=== PATIENT | female | born 1985 | race Caucasian/White ===

== ENCOUNTER → 2016-10-10 | Outpatient (REF) | payer BC, OTHER | LOC: M LAB REF 16:47 | PROVIDERS: ATTEND Physician Assistant | DX: J02.9 Acute pharyngitis, unspecified (principal) ==

== ENCOUNTER → 2016-12-28 | Outpatient (REF) | payer MEDICAID, OTHER ==
[2016-12-28 17:57] LABS: MEAN CORPUSCULAR HEMOGLOBIN 29.5 pg (27.0-33.0); MEAN CORPUSCULAR VOLUME 86.8 fl (80.0-96.0); RED CELL DISTRIBUTION WIDTH 12.2 % (11.5-14.5); WHITE BLOOD COUNT 7.6 K/mm3 (4.0-10.0)
[2016-12-28 18:04] LABS: ALBUMIN 3.9 GM/DL (3.2-5.2); ALBUMIN/GLOBULIN RATIO 1.05 (1.00-1.93); ALKALINE PHOSPHATASE 52 U/L (45-117); ALT/SGPT 26 U/L (12-78); ANION GAP 8 MEQ/L (8-16); AST/SGOT 18 U/L (15-37); BILIRUBIN,TOTAL 0.2 MG/DL (0.2-1.0); BLOOD UREA NITROGEN 10 MG/DL (7-18); CALCIUM LEVEL 8.9 MG/DL (8.5-10.1); CARBON DIOXIDE LEVEL 24 MEQ/L (21-32); CHLORIDE LEVEL 109 MEQ/L (98-107); CREATININE FOR GFR 0.67 MG/DL (0.55-1.02); FREE T4 0.93 NG/DL (0.76-1.46); GLOMERULAR FILTRATION RATE > 60.0 (>60); GLUCOSE, FASTING 90 MG/DL (70-105); POTASSIUM SERUM 4.2 MEQ/L (3.5-5.1); SODIUM LEVEL 141 MEQ/L (136-145); TOTAL PROTEIN 7.6 GM/DL (6.4-8.2)
== END ==
LOC: M SFHCPLAZ 14:24
PROVIDERS: ATTEND Nurse Practitioner Family
DX: F32.89 Other specified depressive episodes (principal)

== ENCOUNTER → 2017-02-14 | Outpatient (REF) | payer OTHER | LOC: M LAB REF 17:03 | PROVIDERS: ATTEND Obstetrics & Gynecology | DX: Z11.3 Encounter for screening for infections with a predominantly sexual mode of transmission (principal); Z12.4 Encounter for screening for malignant neoplasm of cervix ==

== ENCOUNTER → 2017-03-06 | Outpatient (CLI) | payer OTHER | LOC: M WUC 13:35 | PROVIDERS: ATTEND Obstetrics & Gynecology | DX: Z11.3 Encounter for screening for infections with a predominantly sexual mode of transmission (principal) ==

== ENCOUNTER → 2017-04-06 | Outpatient (REF) | payer BC | LOC: M LAB REF 09:00 | PROVIDERS: ATTEND Obstetrics & Gynecology | DX: R87.612 Low grade squamous intraepithelial lesion on cytologic smear of cervix (LGSIL) (principal) ==

== ENCOUNTER 2017-10-14 21:37 | Emergency (ER) | payer BC ==
[2017-10-14 23:20] LABS: KETONE, URINE AUTO RFX NEGATIVE (NEGATIVE); LEUKOCYTE ESTERASE UR AUTO RFX NEGATIVE (NEGATIVE); NITRITE, URINE AUTO RFX NEGATIVE (NEGATIVE); RBC, URINE AUTO RFX 1 /HPF (0-3); SPECIFIC GRAVITY UR AUTO RFX 1.006 (1.002-1.035); SQUAM EPITHELIAL CELL UR AURFX 1 /HPF (0-6); WBC, URINE AUTO RFX 0 /HPF (0-3)
[2017-10-15 00:56] LABS: CHLAMYDIA DNA AMPLIFICATION NEGATIVE (NEGATIVE); GC DNA AMPLIFICATION NEGATIVE (NEGATIVE)
== END 2017-10-15 00:56 | disposition home or self-care (01) ==
LOC: M ED 10-15 00:56
DX: N83.201 Unspecified ovarian cyst, right side (principal); F32.9 Major depressive disorder, single episode, unspecified; R18.8 Other ascites; Z79.899 Other long term (current) drug therapy
CPT/HCPCS: 76856

== ENCOUNTER → 2017-12-06 | Outpatient (CLI) | payer BC | LOC: M RAD 09:54 | DX: D39.11 Neoplasm of uncertain behavior of right ovary (principal) ==

== ENCOUNTER → 2018-02-26 | Outpatient (REF) | payer BC | LOC: M LAB REF 17:40 | DX: N87.1 Moderate cervical dysplasia (principal) | CPT/HCPCS: G0123 ==

== ENCOUNTER → 2018-08-06 | Outpatient (REF) | payer BC | LOC: M LAB REF 13:54 | DX: Z12.4 Encounter for screening for malignant neoplasm of cervix (principal) | CPT/HCPCS: G0123 ==

== ENCOUNTER → 2018-12-02 | Outpatient (REF) | payer BC ==
[~2018-12-02] MED LIST: WELLTAB40 PO; microgestin PO
[2018-12-06 14:22] LABS: HPV HYBRID CAPTURE II Negative (Negative)
== END ==
LOC: M LAB REF 13:17
PROVIDERS: ATTEND Obstetrics & Gynecology
DX: Z87.410 Personal history of cervical dysplasia (principal); R87.615 Unsatisfactory cytologic smear of cervix
CPT/HCPCS: 87624; G0123

== ENCOUNTER → 2018-12-03 | Outpatient (REF) | payer BC | LOC: M LAB REF 13:20 | PROVIDERS: ATTEND Obstetrics & Gynecology | DX: Z87.410 Personal history of cervical dysplasia (principal) ==

== ENCOUNTER → 2019-02-11 | Outpatient (CLI) | payer BC, MEDICAID, SELFPAY ==
[2019-02-11 16:43] LABS: BASO % 0.3 % (0.0-1.0); EOS # 0.1 10^3/uL (0.0-0.50); EOS % 1.3 % (0.0-3.0); HEMATOCRIT 36.6 % (36.0-47.0); HEMOGLOBIN 12.3 g/dl (12.0-15.5); LYMPH # 2.5 10^3/uL (1.5-4.5); LYMPH % 26.5 % (24.0-44.0); MEAN CORPUSCULAR HEMOGLOBIN 29.6 pg (27.0-33.0); MEAN CORPUSCULAR HGB CONC 33.6 g/dl (32.0-36.5); MEAN CORPUSCULAR VOLUME 88.2 fl (80.0-96.0); MONO # 0.7 10^3/uL (0.0-0.8); NEUTROPHILS # 6.1 10^3/uL (1.8-7.7); NEUTROPHILS % 64.6 % (36.0-66.0); PLATELET COUNT, AUTOMATED 184 10^3/uL (150-450); RED BLOOD COUNT 4.15 10^6/uL (4.00-5.40); WHITE BLOOD COUNT 9.4 10^3/uL (4.0-10.0)
[2019-02-11 18:56] LABS: CHLAMYDIA DNA AMPLIFICATION NEGATIVE (NEGATIVE); GC DNA AMPLIFICATION NEGATIVE (NEGATIVE)
[2019-02-12 10:33] LABS: HIV 1&2 SCREEN CENTAUR NEGATIVE (NEGATIVE); RUBELLA IgG QUALITATIVE IMMUNE (IMMUNE)
== END ==
LOC: M LAB 15:36 → M WUC 15:36
PROVIDERS: ATTEND Advanced Practice Midwife
DX: Z34.81 Encounter for supervision of other normal pregnancy, first trimester (principal); Z3A.00 Weeks of gestation of pregnancy not specified

== ENCOUNTER 2019-03-07 14:23 | Day surgery (SDC) | payer MEDICAID ==
[~2019-03-07] VITALS: Ht 167.6 cm; Wt 74.8 kg
[~2019-03-07 14:23] MED LIST changes: +DOXYCYCLINE HYCLATE 100 MG in D5W MINI-BAG PLUS 100 ML IV ONE
[2019-03-07] MEDS ORDERED: DOXYCYCLINE HYCLATE 100 MG/10 ML VIAL As Ordered ONE (14:34)
[2019-03-07 15:02] LABS: HEMATOCRIT 35.7 % (36.0-47.0); HEMOGLOBIN 12.3 g/dl (12.0-15.5); MEAN CORPUSCULAR HEMOGLOBIN 29.6 pg (27.0-33.0); MEAN CORPUSCULAR HGB CONC 34.5 g/dl (32.0-36.5); PLATELET COUNT, AUTOMATED 166 10^3/uL (150-450); RED BLOOD COUNT 4.15 10^6/uL (4.00-5.40); WHITE BLOOD COUNT 7.7 10^3/uL (4.0-10.0)
[2019-03-07] MEDS ORDERED: SILVER NITRATE APPLICATOR As Ordered ONE (16:19)
[2019-03-07] MEDS ORDERED: BUPIVACAINE HCL 0.25% 30 ML VIAL As Ordered ONE (16:37)
[2019-03-07] MEDS ORDERED: PROPOFOL 200 MG/20 ML VIAL As Ordered ONE ×2 (16:48→16:49)
[2019-03-07] MEDS ORDERED: MIDAZOLAM INJ 2 MG/2 ML VIAL (J2250) As Ordered ONE (16:48)
[2019-03-07] MEDS ORDERED: fentaNYL 100 MCG/2 ML INJECTION (J3010) As Ordered ONE (16:48)
[2019-03-07] MEDS ORDERED: miSOPROStol 200 MCG TAB (S0191) As Ordered ONE (16:55)
[2019-03-07] MEDS ORDERED: METHYLERGONOVINE MALEATE 0.2 MG/ML VIAL (J2210) As Ordered ONE (16:55)
[2019-03-07] MEDS ORDERED: ZOFR4TAB16 PO (17:30)
[2019-03-07] MEDS ORDERED: IBUP1TAB7 PO (17:30)
[2019-03-07 18:35] VITALS: BP 123/82
--- NOTE | 2019-03-08 15:24 | RO ---
DATE OF PROCEDURE: 03/07/2019 PREOPERATIVE DIAGNOSIS: First trimester miscarriage/spontaneous of mono-di twins at 9 weeks. POSTOPERATIVE DIAGNOSIS: First trimester miscarriage/spontaneous of mono-di twins at 9 weeks PROCEDURE PERFORMED: Suction dilation and curettage (D and C). FINDINGS The uterus sounded to 8-9 cm. Tissue obtained was grossly consistent with products of conception. SURGEON: Dr. Lokesh Orozco ACADEMIC COUNSELOR: None. ANESTHESIA TYPE Local anesthesia with paracervical block, 13 mL of 0.25% Marcaine. Minimal anesthesia content via IV. SPECIMENS SENT TO PATHOLOGY: Products of conception. ESTIMATED BLOOD LOSS: 100 mL . FLUIDS REPLACED: 600 mL lactated Ringer's. DRAINS: In-and-out catheter 50 mL COMPLICATIONS: None. PREOPERATIVE ANTIBIOTICS: Doxycycline 100 mg IV times one. DESCRIPTION OF PROCEDURE: The patient was counseled and consented on the risks, benefits, indications and alternatives of the procedure. Informed consent was obtained. She was taken to the operating room with an IV running and placed on the operating table in the dorsal supine position. Anesthesia was administered and found to be adequate. She was placed in the high lithotomy position. She was prepared and draped in a normal sterile fashion. A time-out was performed per protocol. The bladder was drained with an in-and-out sterile catheter. A sterile speculum was placed with good visualization of the cervix. The anterior lip of the cervix was grasped with a single-tooth tenaculum, and downward traction was applied. A paracervical block was performed. After the paracervical block, the cervix was sequentially dilated with Oscar dilators up to #20. Size 10 curved Vacurette was placed transcervically into the intrauterine cavity and suction was applied. After several passes of the Vacurette in the intrauterine cavity and return of tissue and blood, there became minimal blood and tissue return. The Vacurette was removed, a sharp curette was placed transcervically into the intrauterine cavity. A sharp curettage was performed throughout the cavity until a gritty texture was noted throughout. Minimal bleeding from the intrauterine cavity was noted. The Vacurette was placed transcervically one more time with minimal blood and tissue return. Minimal bleeding from the os was noted when all instruments were removed. The tenaculum sites were noted to be hemostatic after application of silver nitrate. Sponge, lap, needle and instrument counts were correct. The patient tolerated the entire procedure well. She was transferred to the post-anesthesia care unit (PACU) in good and stable condition. Of note, all instruments were removed from the vagina and confirmed. LEONAD
== END 2019-03-07 18:35 | disposition home or self-care (01) ==
LOC: M SDC 14:23
PROVIDERS: ATTEND Obstetrics & Gynecology
DX: O02.1 Missed abortion (principal)
CPT/HCPCS: 36415; 59820; 85027; 86850; 86900; 86901; 88305; J2250; J3010

== ENCOUNTER → 2019-05-13 | Outpatient (REF) | payer MEDICARE ==
[~2019-05-13] MED LIST changes: -DOXYCYCLINE HYCLATE 100 MG in D5W MINI-BAG PLUS 100 ML IV ONE; +IBUP1TAB7 PO; +ZOFR4TAB16 PO
[2019-05-16 15:47] LABS: HPV HYBRID CAPTURE II Positive (Negative)
== END ==
LOC: M LAB REF 13:39
PROVIDERS: ATTEND Obstetrics & Gynecology
DX: Z12.4 Encounter for screening for malignant neoplasm of cervix (principal); Z87.410 Personal history of cervical dysplasia
CPT/HCPCS: 87624; 88304; 88305; G0123

== ENCOUNTER → 2019-05-19 | Outpatient (REF) | payer MEDICARE | LOC: M LAB REF 08:34 | PROVIDERS: ATTEND Physician Assistant | DX: N39.0 Urinary tract infection, site not specified (principal) ==

== ENCOUNTER → 2019-07-02 | Outpatient (REF) | payer MEDICARE ==
[2019-07-02 15:44] LABS: CHLAMYDIA DNA AMPLIFICATION NEGATIVE (NEGATIVE); GC DNA AMPLIFICATION NEGATIVE (NEGATIVE)
== END ==
LOC: M LAB REF 12:25
PROVIDERS: ATTEND Physician Assistant
DX: R30.0 Dysuria (principal); Z79.899 Other long term (current) drug therapy

== ENCOUNTER → 2019-08-27 | Outpatient (CLI) | payer MEDICARE, OTHER ==
[2019-08-27 17:26] LABS: HEMATOCRIT 40.6 % (36.0-47.0); HEMOGLOBIN 13.6 g/dl (12.0-15.5); MEAN CORPUSCULAR HEMOGLOBIN 30.1 pg (27.0-33.0); MEAN CORPUSCULAR HGB CONC 33.5 g/dl (32.0-36.5); MEAN CORPUSCULAR VOLUME 89.8 fl (80.0-96.0); PLATELET COUNT, AUTOMATED 204 10^3/uL (150-450); RED BLOOD COUNT 4.52 10^6/uL (4.00-5.40)
--- NOTE | 2019-08-28 01:56 | REP ---
Clinical: Abnormal uterine bleeding. Technique: Transabdominal pelvic ultrasound followed by transvaginal examination for better evaluation of the endometrium and adnexa with color Doppler evaluation of the ovaries. Findings: Normal bladder measures 5.7 x 10.0 x 10.9 cm. Heterogeneous anteverted subseptate uterus measures approximately 6.6 x 3.3 x 5.1 cm. Endometrial complex to the right cornua measures 3.8 mm; endometrial complex to the left cornua measures 4.6 mm. No significant focal uterine or endometrial abnormality otherwise noted. Left ovary appears relatively normal in appearance and vascularity without torsion measuring 2.3 x 1.6 x 1.4 cm (RI 0.37). Right ovary measures approximately 5.5 x 2.8 x 2.6 cm (RI 0.41) and includes two complex cystic lesions possibly representing physiologic hemorrhagic cysts measuring 2.8 x 2.3 x 2.1 cm and 1.4 x 0.8 x 0.9 cm. No significant pelvic free fluid or adnexal mass lesion. Impression: 1. Heterogeneous subseptate uterus is suggested without further obvious abnormality. 2. Complex cystic lesions within the right ovary likely physiologic/hemorrhagic cysts. Consider reevaluation and 4-6 weeks to evaluate for resolution. Electronically Signed by Darvin Mclaughlin MD 08/28/2019 01:47 A
== END ==
LOC: M RAD 16:19
PROVIDERS: ATTEND Obstetrics & Gynecology
DX: N93.9 Abnormal uterine and vaginal bleeding, unspecified (principal); N83.201 Unspecified ovarian cyst, right side

== ENCOUNTER → 2019-10-09 | Outpatient (CLI) | payer OTHER | LOC: M PLALAB 15:41 | PROVIDERS: ATTEND Obstetrics & Gynecology | DX: N91.1 Secondary amenorrhea (principal) ==

== ENCOUNTER → 2019-10-11 | Outpatient (CLI) | payer OTHER | LOC: M WUC 09:48 | PROVIDERS: ATTEND Obstetrics & Gynecology | DX: N91.1 Secondary amenorrhea (principal) ==

== ENCOUNTER → 2019-11-08 | Outpatient (CLI) | payer OTHER ==
[2019-11-08 12:29] LABS: HEMATOCRIT 37.7 % (36.0-47.0); HEMOGLOBIN 12.6 g/dl (12.0-15.5); MEAN CORPUSCULAR HEMOGLOBIN 29.9 pg (27.0-33.0); MEAN CORPUSCULAR HGB CONC 33.4 g/dl (32.0-36.5); MEAN CORPUSCULAR VOLUME 89.5 fl (80.0-96.0); PLATELET COUNT, AUTOMATED 192 10^3/uL (150-450); RED BLOOD COUNT 4.21 10^6/uL (4.00-5.40); WHITE BLOOD COUNT 7.5 10^3/uL (4.0-10.0)
[2019-11-08 13:56] LABS: CHLAMYDIA DNA AMPLIFICATION NEGATIVE (NEGATIVE); GC DNA AMPLIFICATION NEGATIVE (NEGATIVE)
[2019-11-10 11:30] LABS: HEPATITIS C VIRUS ABY INDEX < 0.0 INDEX (<0.8); HIV 1&2 SCREEN CENTAUR NEGATIVE (NEGATIVE); RUBELLA IgG QUALITATIVE IMMUNE (IMMUNE)
== END ==
LOC: M WUC 09:54
PROVIDERS: ATTEND Obstetrics & Gynecology
DX: Z32.01 Encounter for pregnancy test, result positive (principal)

== ENCOUNTER → 2019-11-26 | Outpatient (CLI) | payer OTHER | LOC: M PLALAB 15:42 | PROVIDERS: ATTEND Obstetrics & Gynecology | DX: Z34.81 Encounter for supervision of other normal pregnancy, first trimester (principal); Z3A.00 Weeks of gestation of pregnancy not specified ==

== ENCOUNTER → 2020-01-29 | Outpatient (CLI) | payer OTHER ==
--- NOTE | 2020-01-29 18:31 | REP ---
Clinical: Anatomical evaluation. Comparison: None . Findings: Examination demonstrates a single live intrauterine in transverse lie (head to maternal left) presentation. motion is identified by technologist. Placenta is noted anterior and grade zero without evidence for placenta previa or abruption. Amniotic fluid volume is normal. Cervix measures 4.6 cm in length and appears closed. No evidence for nuchal cord. Gestational age by current measurements 21 weeks 4 days with ZOILA 06/06/2020 . FHR equals 156 beats per minute. BPD 5.2 cm 21 weeks 6 days HC 19.6 cm 21 weeks 6 days AC 16.7 cm 21 weeks 5 days FL 3.7 cm 21 weeks 5 days HL 3.5 cm 21 weeks 6 days HC/AC ratio 1.17 Estimated weight 449 grams ( 54th percentile). Anatomical assessment demonstrates normal structures including cranium, choroid plexus, cavum, cerebellum/posterior fossa, facial features, lungs, four-chamber heart/ventricular outflow tracts, diaphragm, stomach, cord insertion/three-vessel cord, kidneys/bladder, spine, and extremities. Impression: Single live intrauterine in transverse lie demonstrating appropriate estimated weight and growth. Anatomical assessment is complete and normal. No gross abnormalities are identified.
== END ==
LOC: M WHC 10:15
PROVIDERS: ATTEND Obstetrics & Gynecology
DX: O32.2XX0 Maternal care for transverse and oblique lie, not applicable or unspecified (principal); Z36.89 Encounter for other specified antenatal screening; Z3A.21 21 weeks gestation of pregnancy

== ENCOUNTER → 2020-02-26 | Outpatient (CLI) | payer OTHER ==
[2020-02-26 09:02] LABS: HEMATOCRIT 34.7 % (36.0-47.0); HEMOGLOBIN 11.6 g/dl (12.0-15.5); MEAN CORPUSCULAR HEMOGLOBIN 30.4 pg (27.0-33.0); MEAN CORPUSCULAR HGB CONC 33.4 g/dl (32.0-36.5); MEAN CORPUSCULAR VOLUME 91.1 fl (80.0-96.0); PLATELET COUNT, AUTOMATED 174 10^3/uL (150-450); RED BLOOD COUNT 3.81 10^6/uL (4.00-5.40); WHITE BLOOD COUNT 10.9 10^3/uL (4.0-10.0)
== END ==
LOC: M LAB 07:15
PROVIDERS: ATTEND Obstetrics & Gynecology
DX: Z36.89 Encounter for other specified antenatal screening (principal); Z3A.25 25 weeks gestation of pregnancy

== ENCOUNTER → 2020-03-02 | Outpatient (REF) | payer OTHER | LOC: M SFHCWAGY 17:02 | PROVIDERS: ATTEND Obstetrics & Gynecology | DX: Z87.410 Personal history of cervical dysplasia (principal); Z12.4 Encounter for screening for malignant neoplasm of cervix; Z01.419 Encounter for gynecological examination (general) (routine) without abnormal findings ==

== ENCOUNTER → 2020-05-13 | Outpatient (REF) | payer OTHER ==
[~2020-05-13] MED LIST changes: +ACET-683 PO; +IBUP80TA PO
== END ==
LOC: M SFHCWAGY 12:34
PROVIDERS: ATTEND Advanced Practice Midwife
DX: Z36.89 Encounter for other specified antenatal screening (principal)

== ENCOUNTER 2020-05-25 12:20 | Inpatient (IN) | payer OTHER ==
[~2020-05-25 12:20] MED LIST changes: -ACET-683 PO; -IBUP80TA PO
[2020-05-25] MEDS ORDERED: miSOPROStol 50 MCG 1/2 TAB (S0191) As Ordered ONE (16:46)
[2020-05-25] MEDS ORDERED: LR 1,000 ML IV SCH (20:00)
[2020-05-25] MEDS ORDERED: miSOPROStol 50 MCG 1/2 TAB (S0191) ONE (20:55)
[2020-05-25] MEDS ORDERED: miSOPROStol 50 MCG 1/2 TAB (S0191) PO SCH (21:00)
[2020-05-25] MEDS ORDERED: diphenhydrAMINE 25MG CAP PO SCH (21:00)
[2020-05-25 21:13] LABS: HEMATOCRIT 36.7 % (36.0-47.0); HEMOGLOBIN 12.2 g/dl (12.0-15.5); MEAN CORPUSCULAR HEMOGLOBIN 29.8 pg (27.0-33.0); MEAN CORPUSCULAR HGB CONC 33.2 g/dl (32.0-36.5); MEAN CORPUSCULAR VOLUME 89.7 fl (80.0-96.0); PLATELET COUNT, AUTOMATED 188 10^3/uL (150-450); RED BLOOD COUNT 4.09 10^6/uL (4.00-5.40); WHITE BLOOD COUNT 14.5 10^3/uL (4.0-10.0)
[2020-05-26] VITALS (8 sets, daily range): BP systolic 108–136; BP diastolic 63–95
[2020-05-26] MEDS ORDERED: FENTANYL 2MCG/ML ROPIVACAINE 0.2% IN 0.9% NACL 100ML IVBAG As Ordered ONE (06:25)
[2020-05-26] MEDS ORDERED: NALOXONE INJ 0.4MG/1ML VIAL (J2310 PER 1MG) IV PRN (08:45)
[2020-05-26] MEDS ORDERED: LACTATED RINGER'S 1000 ML IV PRN (08:45)
[2020-05-26] MEDS ORDERED: EPIDURAL/PCA KEYS XX PRN (08:45)
[2020-05-26] MEDS ORDERED: diphenhydrAMINE 50MG/ML VIAL (J1200) IV PRN (08:45)
[2020-05-26] MEDS ORDERED: ONDANSETRON 4MG/2ML VIAL IV PRN (08:45)
[2020-05-26] MEDS ORDERED: FENTANYL/ROPIVACAINE/NACL BAG 100 ML EPIDURAL SCH (08:45)
[2020-05-26] MEDS ORDERED: EPIDURAL COMMENT XX SCH (08:45)
[2020-05-26] MEDS ORDERED: REFRIGERATOR IV KEYS XX PRN (08:45)
[2020-05-26] MEDS: ePHEDrine SULFATE 25 MG/5 ML(5MG/ML) SYRINGE IV PRN ×2 (11:33→12:32)
[2020-05-26] MEDS ORDERED: OXYTOCIN 30 UNITS IN 0.9% NaCl 500ML IV BAG (J2590) As Ordered ONE ×2 (14:39→21:03)
[2020-05-26] MEDS ORDERED: MEASLES,MUMPS,RUBELLA VACCINE INJ (MMR-II) (90707) SC SCH (19:30)
[2020-05-26] MEDS ORDERED: OXYTOCIN DRIP 30 UNITS in IV 1 EA IV SCH ×2 (19:30→21:02)
[2020-05-26] MEDS ORDERED: ACETAMINOPHEN TAB 650MG DOSE (2X325MG) PO PRN (19:30)
[2020-05-26] MEDS ORDERED: RHOGAM 300 MCG (1500 IU) INJ (J2790) IM SCH (19:30)
[2020-05-26] MEDS ORDERED: METHYLERGONOVINE MALEATE 0.2 MG TAB PO PRN (19:30)
[2020-05-26] MEDS ORDERED: DIBUCAINE 1% OINTMENT 30GM TOP PRN (19:30)
[2020-05-26] MEDS ORDERED: DOCUSATE SODIUM 100 MG CAP PO PRN (19:30)
[2020-05-26] MEDS ORDERED: BUTORPHANOL 2 MG/ML INJ (J0595) As Ordered ONE (21:41)
[2020-05-26] MEDS ORDERED: BUTORPHANOL 2 MG/ML INJ (J0595) IV ONE (21:45)
[2020-05-26] MEDS ORDERED: miSOPROStol 200 MCG TAB (S0191) PR ONE (21:45)
[2020-05-27] MEDS: IBUPROFEN 600MG TAB PO PRN ×2 (00:53→14:36)
[2020-05-27 02:00] VITALS: BP 128/65
[2020-05-27 06:00] VITALS: BP 120/67
[2020-05-27] MEDS: PRENATAL VITAMINS CHEWABLE TABLET PO SCH (08:56)
[2020-05-27] MEDS: IBUPROFEN 800 MG TAB PO PRN ×2 (08:57→23:10)
[2020-05-27 10:00] VITALS: BP 130/75
[2020-05-27 14:00] VITALS: BP 122/69
[2020-05-27 18:00] VITALS: BP 138/70
[2020-05-27] MEDS: ACETAMINOPHEN 500 MG TAB PO PRN (19:58)
[2020-05-27 22:00] VITALS: BP 109/59
[2020-05-28 02:00] VITALS: BP 118/59
[2020-05-28] MEDS: ACETAMINOPHEN 500 MG TAB PO PRN ×2 (05:45→15:02)
[2020-05-28] MEDS: PRENATAL VITAMINS CHEWABLE TABLET PO SCH (08:01)
[2020-05-28] MEDS ORDERED: IBUP80TA PO (09:30)
[2020-05-28] MEDS ORDERED: ACET-683 PO (09:30)
[2020-05-28 10:00] VITALS: BP 144/77
[2020-05-28 14:00] VITALS: BP 136/69
--- NOTE | 2020-07-12 14:55 | HPE ---
DATE OF ADMISSION: 05/25/2020 REASON FOR ADMISSION: Induction of labor for gestational hypertension. HISTORY OF PRESENT ILLNESS: This patient is a 34-year-old 3, para 0, who presents at 38+ weeks from the office with elevated blood pressures. This is now a consecutive appointment where she has had mildly elevated blood pressure. She describes some dizziness, but otherwise has been asymptomatic. Denies headache, visual changes, or abdominal pain. She reports active movements. Denies any vaginal bleed or leakage of fluid. Her course had otherwise been unremarkable. She initiated care in the first trimester and has been appropriate throughout. PAST MEDICAL HISTORY: None. PAST SURGICAL HISTORY: She has had a dilation and curettage. MEDICATIONS: Include vitamin. ALLERGIES: No known drug allergies. SOCIAL HISTORY: She is a former smoker, but denies any smoking during her as well as alcohol or drug use. PHYSICAL EXAMINATION: VITAL SIGNS: Currently her vital signs are stable. She is afebrile. She has category 1 heart tracing with no contractions on the tocometer. GENERAL APPEARANCE: Well-appearing, in no acute distress. LUNGS: Clear to auscultation bilaterally. CARDIOVASCULAR: Heart regular rate and rhythm. ABDOMEN: Gravid and nontender. Estimated weight (EFW) 3600 grams. CERVICAL: Her cervix was long and closed. ASSESSMENT: * Mrs. Mckay is a 34-year-old 3, para 0, at 38+ weeks with gestational hypertension. * Reassuring status. PLAN: * Admit to labor and delivery. CBC, RPR, type and screen, preeclampsia panel. * Patient has been thoroughly counseled in regards to her diagnosis. I discussed induction of labor secondary to gestational hypertension. We reviewed medication, as well as procedure performed in labor and delivery. She has also been verbally consented for emergency surgery, blood products, anesthesia, and desires to proceed with admission. * Will initiate induction of labor with 50 mcg of oral misoprostol. MTDD
[2020-07-28 16:01] LABS: HEPATITIS B SURFACE ANTIGEN NEGATIVE (NEGATIVE); HIV 1&2 SCREEN CENTAUR NEGATIVE (NEGATIVE)
[2020-08-04 04:02] LABS: ALT/SGPT 23 U/L (12-78); BILIRUBIN,TOTAL 0.3 MG/DL (0.2-1.0); GLOMERULAR FILTRATION RATE > 60.0 (>60); LDH LACTATE DEHYDROGENASE 210 U/L (84-246); URIC ACID 4.6 MG/DL (2.6-6.0)
== END 2020-05-28 17:15 | disposition home or self-care (01) | DRG 560 ==
LOC: M LDI 12:20 → M OBS 05-26 23:00
PROVIDERS: ADMIT Obstetrics & Gynecology; ATTEND Obstetrics & Gynecology
PROC: 10E0XZZ Delivery of Products of Conception, External Approach (ICD-10-PCS; principal; 2020-05-26)
PROC: 0KQM0ZZ Repair Perineum Muscle, Open Approach (ICD-10-PCS; 2020-05-26)
PROC: 0HQ9XZZ Repair Perineum Skin, External Approach (ICD-10-PCS; 2020-05-26)
DX: O13.4 Gestational [pregnancy-induced] hypertension without significant proteinuria, complicating childbirth (principal); O69.81X0 Labor and delivery complicated by cord around neck, without compression, not applicable or unspecified; Z37.0 Single live birth; Z3A.38 38 weeks gestation of pregnancy; Z87.891 Personal history of nicotine dependence; O70.0 First degree perineal laceration during delivery; O70.1 Second degree perineal laceration during delivery

== ENCOUNTER → 2020-09-06 | Outpatient (REF) | payer OTHER ==
[~2020-09-06] MED LIST changes: +ACET-683 PO; +IBUP80TA PO
== END ==
LOC: M SFHCWAGY 17:10
PROVIDERS: ATTEND Obstetrics & Gynecology
DX: R87.610 Atypical squamous cells of undetermined significance on cytologic smear of cervix (ASC-US) (principal)

== ENCOUNTER → 2020-11-12 | Outpatient (CLI) | payer OTHER ==
[~2020-11-12] MED LIST changes: +PREN1TAB25 PO; +ZOLO50TA PO
== END ==
LOC: M LABSMTC 09:46
PROVIDERS: ATTEND Anesthesiology
DX: Z01.812 Encounter for preprocedural laboratory examination (principal); Z20.822 Contact with and (suspected) exposure to COVID-19

== ENCOUNTER 2020-11-17 13:45 | Day surgery (SDC) | payer OTHER ==
[~2020-11-17] VITALS: Ht 167.6 cm; Wt 79.3 kg
[~2020-11-17 13:45] MED LIST changes: +LIDOCAINE 1% MDV 20ML VIAL SQ PRN; +LR 1,000 ML IV ONE
[2020-11-17 14:12] LABS: HEMATOCRIT 39.2 % (36.0-47.0); HEMOGLOBIN 13.3 g/dl (12.0-15.5); MEAN CORPUSCULAR HEMOGLOBIN 29.6 pg (27.0-33.0); MEAN CORPUSCULAR HGB CONC 33.9 g/dl (32.0-36.5); MEAN CORPUSCULAR VOLUME 87.3 fl (80.0-96.0); PLATELET COUNT, AUTOMATED 189 10^3/uL (150-450); RED BLOOD COUNT 4.49 10^6/uL (4.00-5.40)
[2020-11-17] MEDS ORDERED: propofoL 200 MG/20 ML VIAL As Ordered ONE ×2 (14:29→15:37)
[2020-11-17] MEDS ORDERED: LIDOCAINE 2% 100MG/5ML SDV (FOR ANES.) As Ordered ONE (14:29)
[2020-11-17] MEDS ORDERED: fentaNYL 100 MCG/2 ML INJECTION (J3010) As Ordered ONE (14:29)
[2020-11-17] MEDS ORDERED: MIDAZOLAM INJ 2MG/2ML VIAL (J2250 PER 1MG) As Ordered ONE ×2 (14:29→15:18)
[2020-11-17 14:39] LABS: HCG, SERUM QUALITATIVE NEGATIVE (NEGATIVE)
[2020-11-17] MEDS ORDERED: IODINE STRONG SOLN 15 ML BTL As Ordered ONE (14:53)
[2020-11-17] MEDS ORDERED: SILVER NITRATE APPLICATOR As Ordered ONE (14:53)
[2020-11-17] MEDS ORDERED: LIDOCAINE W/EPINEPHRINE 1% 20ML VIAL As Ordered ONE (14:53)
[2020-11-17] MEDS ORDERED: KETAMINE HCL 200 MG/20 ML VIAL As Ordered ONE (15:00)
--- NOTE | 2020-11-17 16:01 | ROOPDOC ---
[facility] Report Of Operation Report of Operation DATE OF OPERATION: 11/17/2020 PREOPERATIVE DIAGNOSIS:. Persistent RENO-2 POSTOPERATIVE DIAGNOSIS: Same PROCEDURE PERFORMED: Loop electrosurgical excision procedure (LEEP) SURGEON: Paz Orozco DO MACHINE TURNER: None. ANESTHESIA: Intravenous (IV) sedation with local anesthesia/paracervical block. SPECIMEN(S) SENT TO PATHOLOGY: Bottom half of the cervix with squamocolumnar junction. 3 separate segments Top half of the cervix with the squamocolumnar junction. Tagged at 12:00 ESTIMATED BLOOD LOSS: 15 mL. FLUIDS PLACED: 300 mL. DRAINS: In and out catheter, 50 mL. URINE OUTPUT: None. COMPLICATIONS: None. ANTIBIOTICS: None indicated. INTRAOPERATIVE FINDINGS: INDICATIONS: Persistent RENO-2. DESCRIPTION OF PROCEDURE: The patient was counseled and consented on the risks, benefits, indications, and alternatives of the procedure. Informed consent was obtained. She was taken to the operating room with an IV running in placed on the operating table and then dorsal supine position. Anesthesia was found to be adequate. She was placed in the high lithotomy position. She was prepared and draped in normal sterile fashion. Time-out was performed per protocol. The bladder was drained with sterile in and out catheter. A coated Graves speculum was placed into the vagina with good visualization of the cervix. The cervix was coated with acetic acid and the dysplasia was evident even without colposcopy. The size 15 mm x 10 mm loop was used to excise the bottom half of the cervix at the level of the squamocolumnar junction. In a similar fashion the top half of the cervix including the squamocolumnar junction was excised with the same loop, and these two specimens were sent separately to pathology. The remaining raw cervix was cauterized with a roller ball cautery. The IUD strings were intact and still protruding through the external os extending 1-2 cm from the os. Excellent hemostasis was noted. Monsel solution was applied to ensure hemostasis. Paracervical block was performed for postoperative comfort. Ten mL of 1% Lidocaine with epinephrine used. Sponge, needle, and instrument counts were correct per protocol. The patient tolerated the entire procedure very well. She was transferred to the PACU in good and stable condition. PAZ OROZCO DO Nov 17, 2020 16:01
--- OUTSIDE RECORDS SUMMARY | 2020-11-17 16:13 | CCD ---
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 Name Role Phone Yusuf HUNT DPM Unavailable Unavailable Yusuf HUNT DPM Unavailable Unavailable Yusuf HUNT DPM Unavailable Unavailable Yusuf HUNT DPM Unavailable Unavailable Yusuf HUNTM Unavailable Unavailable Yusuf HUNT DPM Unavailable Unavailable MAJAK, R MIKY DPM Unavailable Unavailable MAJAK, R MIKY DPM Unavailable Unavailable MAJAK, R MIKY DPM Unavailable Unavailable MAJAK, R MIKY DPM Unavailable Unavailable MAJAK, R MIKY DPM Unavailable Unavailable MAJAK, R MIKY DPM Unavailable Unavailable MAJAK, R MIKY DPM Unavailable Unavailable MAJAK, R MIKY DPM Unavailable Unavailable MAJAK, R MIKY DPM Unavailable Unavailable MAJAK, R MIKY DPM Unavailable Unavailable MAJAK, R MIKY DPM Unavailable Unavailable MAJAK, R MIKY DPM Unavailable Unavailable MAJAK, R MIKY DPM Unavailable Unavailable MAJAK, R MIKY DPM Unavailable Unavailable MAJAK, R MIKY DPM Unavailable Unavailable MAJAK, R MIKY DPM Unavailable Unavailable MAJAK, R MIKY DPM Unavailable Unavailable MAJAK, R MIKY DPM Unavailable Unavailable MAJAK, R MIKY DPM Unavailable Unavailable MAJAK, R MIKY DPM Unavailable Unavailable MAJAK, R MIKY DPM Unavailable Unavailable MAJAK, R MIKY DPM Unavailable Unavailable MAJAK, R MIKY DPM Unavailable Unavailable MAJAK, R MIKY DPM Unavailable Unavailable Re-disclosure Warning The records that you are about to access may contain information from federally-assisted alcohol or drug abuse programs. If such information is present, then the following federally mandated warning applies: This information has been disclosed to you from records protected by federal confidentiality rules (42 CFR part 2). The federal rules prohibit you from making any further disclosure of this information unless further disclosure is expressly permitted by the written consent of the person to whom it pertains or as otherwise permitted by 42 CFR part 2. A general authorization for the release of medical or other information is NOT sufficient for this purpose. The Federal rules restrict any use of the information to criminally investigate or prosecute any alcohol or drug abuse patient.The records that you are about to access may contain highly sensitive health information, the redisclosure of which is protected by Article 27-F of the [place] Public Health law. If you continue you may have access to information: Regarding HIV / AIDS; Provided by facilities licensed or operated by the [facility] Office of Mental Health; or Provided by the [facility] Office for People With Developmental Disabilities. If such information is present, then the following [facility] mandated warning applies: This information has been disclosed to you from confidential records which are protected by state law. State law prohibits you from making any further disclosure of this information without the specific written consent of the person to whom it pertains, or as otherwise permitted by law. Any unauthorized further disclosure in violation of state law may result in a fine or nursing home sentence or both. A general authorization for the release of medical or other information is NOT sufficient authorization for further disc losure. Family History Family Member Name Family Member Gender Family Member Status Date o f Status Description Data Source(s) Unknown Unknown Problem MED[facility] ([facility] Encounters Encounter Providers Location Date Indications Data Source(s ) Outpatient [address] [facility] [address] 11/11/2020 12:00:00 AM EST eCW1 ([facility]) Outpatient [address] [facility] [address] 11/01/2020 12:00:00 AM EST eCW1 ([facility]) [facility] [address] [facility] [address] 09/20/2020 12:00:00 AM EST eCW1 ([facility]) TeleMedicine Phone E/M by Shamar 11-[address] [place], [place] [id number] 09/07/2020 12:00:00 AM EST eCW1 ([facility]) Unknown [address] [facility] [address] 09/07/2020 12:00:00 AM EST [facility]CW1 [facility]) ( PROC) [facility] Procedure [address] [place] [address] 09/06/2020 12:00:00 AM EST eCW1 ([facility]) (WC PROC) [facility] Procedure [address] 08/17/2020 12:00:00 AM EST eCW1 ([facility]) ( ESTOB) [facility] Est OB [address] [place] [address] 07/23/2020 12:00:00 AM EDT [facility]OB[facility] Est OB [address] [place] [address] 04/28/2020 12:00:00 AM EDT eCW1 ([facility]) (WC ESTOB) [facility] Est OB [address] [place] [address] 04/14/2020 12:00:00 AM EDT eCW1 ([facility]) Outpatient 03/24/2020 04:45:00 PM EDT [facility] Outpatient 03/24/2020 04:18:00 PM EDT [facility] Outpatient 03/24/2020 04:18:00 PM EDT [facility] (WC ESTOB) [facility] Est OB [address] [place] [address] 03/15/2020 12:00:00 AM EDT eCW1 ([facility]) Outpatient 03/10/2020 12:53:00 PM EDT [facility] Outpatient 03/10/2020 12:50:00 PM EDT [facility] (WC PROC) [facility] Procedure [address] [place] [address] 03/02/2020 12:00:00 AM EDT eCW1 ([facility]) [facility] [address] [place] [address] 02/24/2020 12:00:00 AM EDT eCW1 ([facility]) Outpatient 02/10/2020 05:47:00 AM EDT [facility] [place] [address] [facility] [place] [address] 01/28/2020 12:00:00 AM EDT eCW1 ([facility]) [facility] [address] [facility] [place] [address] 01/27/2020 12:00:00 AM EDT eCW1 ([facility]) [facility] [address] [facility] [place] [address] 01/26/2020 12:00:00 AM EDT eCW1 ([facility]) [facility] [address] [place] [address] 01/21/2020 12:00:00 AM EDT eCW1 ([facility]) [facility] [address] [place] [address] 12/29/2019 12:00:00 AM EDT eCW1 ([facility]) Outpatient Attender: MIKY HUNT [facility] 12/2019 02:30:00 PM EST [facility] ([facility] [address] [place] [address] 12/01/2019 12:00:00 AM EST eCW1 ([facility]) Outpatient Attender: MIKY HUNT [facility] 11/08 02:30:00 PM EST [facility] ([facility] [address] [place] [address] 11/13/2019 12:00:00 AM EST eCW1 ([facility]) [facility] [address] [place] [address] 10/28/2019 12:00:00 AM EST eCW1 ([facility]) [facility] [address] [place] [address] 10/06/2019 12:00:00 AM EST eCW1 ([facility]) [facility] [address] [place] [address] 10/06/2019 12:00:00 AM EST eCW1 ([facility]) [facility] [address] [place] [address] 09/22/2019 12:00:00 AM EST eCW1 ([facility]) Immunizations Vaccine Date Status Description Data Source(s) Tdap 03/30/2020 04:49:00 PM EDT completed e CW1 ([facility]) Tdap 03/30/2020 04:49:00 PM EDT completed e CW1 ([facility]) Tdap 03/30/2020 04:49:00 PM EDT completed e CW1 ([facility]) Tdap 03/30/2020 04:49:00 PM EDT completed e CW1 ([facility]) Tdap 03/30/2020 04:49:00 PM EDT completed e CW1 ([facility]) Tdap 03/30/2020 04:49:00 PM EDT completed e CW1 ([facility]) Tdap 03/30/2020 04:49:00 PM EDT completed e CW1 ([facility]) Tdap 03/30/2020 04:49:00 PM EDT completed e CW1 ([facility]) Tdap 03/30/2020 04:49:00 PM EDT completed e CW1 ([facility]) Tdap 03/30/2020 04:49:00 PM EDT completed e CW1 ([facility]) Medications Medication Brand Name Start Date Product Form Dose Route Admi nistrative Instructions Pharmacy Instructions Status Indications Reaction Description Data Source(s) 50 mg 09/08/2020 12:00:00 AM EST tablet 30 TAKE ONE TABLET BY MOUTH ONCE A DAY TAKE ONE TABLET BY MOUTH ONCE A DAY SOLD: 09/11/2020 [facility] 50 mg 09/08/2020 12:00:00 AM EST tablet 30 TAKE ONE TABLET BY MOUTH ONCE A DAY TAKE ONE TABLET BY MOUTH ONCE A DAY SOLD: 10/16/2020 [facility] Sertraline 50 MG Oral Tablet Sertraline HCl 50 MG Sertraline HCl 50 MG 09/07/2020 12:00:00 AM EST 1.0 {tablet} active Sertraline HCl 50 MG eCW1 ([facility]) Sertraline 50 MG Oral Tablet Sertraline HCl 50 MG Sertraline HCl 50 MG 09/07/2020 12:00:00 AM EST 1.0 {tablet} active Sertraline HCl 50 MG eCW1 ([facility]) Sertraline 50 MG Oral Tablet Sertraline HCl 50 MG Sertraline HCl 50 MG 09/07/2020 12:00:00 AM EST 1.0 {tablet} active Sertraline HCl 50 MG eCW1 ([facility]) Sertraline 50 MG Oral Tablet Sertraline HCl 50 MG Sertraline HCl 50 MG 09/07/2020 12:00:00 AM EST 1.0 {tablet} active Sertraline HCl 50 MG eCW1 ([facility]) Sertraline 50 MG Oral Tablet Sertraline HCl 50 MG Sertraline HCl 50 MG 09/07/2020 12:00:00 AM EST 1.0 {tablet} active Sertraline HCl 50 MG eCW1 ([facility]) 25 mg 06/29/2020 12:00:00 AM EDT tablet 30 TAKE ONE TABLET BY MOUTH EVERY DAY TAKE ONE TABLET BY MOUTH EVERY DAY SOLD: 07/11/2020 [facility] 25 mg 06/03/2020 12:00:00 AM EDT tablet 30 TAKE ONE TABLET BY MOUTH EVERY DAY TAKE ONE TABLET BY MOUTH EVERY DAY SOLD: 06/03/2020 [facility] 300 mg 10/04/2019 12:00:00 AM EST tablet extended release 24 hr 30 TAKE ONE TABLET BY MOUTH EVERY MORNING TAKE ONE TABLET BY MOUTH EVERY MORNING SOLD: 10/04/2019 [facility] Insurance Providers Payer name Policy type / Coverage type Policy ID Covered republican ID Covered republican's relationship to grant Policy Grant Plan Information [facility] PLAN [facility] [id number] SP [id number] [facility] PLAN [facility] [id number] SELF PAY O UNAVAILABLE S UNAVAILA BLE [facility](MCAID) O [id number] S [id number] [facility] [id number] SP [id number] ANSI-Commercial [id number] ANSI-Medicaid [id number] ANSI-Commercial [id number] ANSI-Medicaid [id number] ANSI-Not a Secondary Insurance [id number] ANSI-Commercial [id number] ANSI-Medicaid [id number] ANSI-Commercial [id number] ANSI-Medicaid [id number] ANSI-Not a Secondary Insurance [id number] [facility] Commercial [id number] Self [id number] ANSI-Commercial [id number] ANSI-Medicaid [id number] ANSI-Commercial [id number] ANSI-Medicaid [id number] ANSI-Medicaid [id number] ANSI-Medicaid [id number] ANSI-Commercial [id number] ANSI-Commercial [id number] [facility] Part B [id number] Self [id number] [facility] (HMO) [id number] Self [id number] MEDICAID [id number] SP [id number] [facility] Part B [id number] Self [id number] [facility] Health Maintenance Organization (HMO) [id number] Self [id number] MEDICAID [id number] SP [id number] SELF PAY ONLY [id number] SP [id number] BCBS [place] PPO 302/307 [id number] SP [id number] ANSI-Commercial [id number] ANSI-Medicaid [id number] ANSI-Commercial [id number] ANSI-Medicaid [id number] [facility] Health Maintenance Organization (HMO) [id number] Self [id number] ANSI-Commercial [id number] ANSI-Medicaid [id number] ANSI-Medicaid [id number] ANSI-Medicaid [id number] ANSI-Commercial [id number] ANSI-Medicaid [id number] ANSI-Commercial [id number] ANSI-Medicaid [id number] ANSI-Medicaid [id number] BCBS [place] PPO 302/307 [id number] SP [id number] [facility] Part B [id number] Self [id number] [facility] Health Maintenance Organization (O) [id number] Self [id number] ANSI-Medicaid [id number] ANSI-Commercial [id number] ANSI-Medicaid [id number] ANSI-Medicaid [id number] ANSI-Commercial [id number] ANSI-Medicaid [id number] BCBS/[employer] Commercial [id number] Self [id number] [facility] Part B [id number] Self [id number] [facility] Health Maintenance Organization (HMO) [id number] Self [id number] BCBS [place] PPO 302/307 [id number] SP [id number] [employer] Commercial [id number] Self [id number] BCBS [place] PPO 302/307 [id number] SP [id number] [employer] Commercial [id number] Self [id number] BCBS [employer] [id number] SP [id number] [employer] BCBS B [id number] S [id number] EX[employer] BCBS [id number] SP [id number] [facility] [employer]/M[employer] Medigap Part B [id number] Self [id number] [employer] BCBS Health Maintenance Organization (HMO) [id number] Self [id number] [employer] BCBS FEDERAL [id number] SP [id number] [employer] BCBS FEDERAL [id number] SP [id number] [facility] [employer]/MCR Medigap Part B [id number] Self [id number] [employer] Health Maintenance Organization (HMO) [id number] Self [id number] [facility] [employer]/MCR Medigap Part B [id number] Self [id number] [employer] BS Health Maintenance Organization (HMO) [id number] Self [id number] [employer] [place] Commercial [id number] Self [id number] [facility] [employer]/MCR Medigap Part B [id number] Self [id number] [employer] BS Health Maintenance Organization (HMO) [id number] Self [id number] [facility] Hmo Commercial [id number] Self [id number] [facility] Health Maintenance Organization (HMO) [id number] Self [id number] [facility] Hmo Commercial [id number] Self [id number] [facility] Hmo Commercial [id number] Self [id number] [facility] Hmo Commercial [id number] Self [id number] [facility] Hmo Commercial Self BCBS [place] PPO 302/307 [id number] SP [id number] [facility] Health Maintenance Organization (HMO) Self MVP (pr) Commercial Self BS [place] Commercial Self MEDICAID [id number] [place] [id number] MEDICAID W [id number] S [id number] Problems, Conditions, and Diagnoses Code Display Name Description Problem Type Effective Dates Data Source(s) N87.1 [id number] Moderate cervical dysplasia Problem 11/01/19 12:00:00 AM EST eCW1 ([facility]) N87.0 [id number] Mild dysplasia of cervix ([place]) Problem 09/06/2020 12:00:00 AM EST eCW1 ([facility]) Z87.410 [id number] Personal history of cervical dysplasia Pr oblem 11/13/2019 12:00:00 AM EST eCW1 ([facility]) Z34.80 care Supervision of other normal P roblem 11/13/2019 12:00:00 AM EST eCW1 ([facility]) Z34.80 care Supervision of other normal P roblem 11/13/2019 12:00:00 AM EST eCW1 ([facility]) Z87.410 [id number] Personal history of cervical dysplasia Pr oblem 11/13/2019 12:00:00 AM EST eCW1 ([facility]) N91.1 [id number] Secondary amenorrhea Problem 10/06/2019 12:0 0:00 AM EST eCW1 ([facility]) N91.1 [id number] Secondary amenorrhea Problem 10/06/2019 12:0 0:00 AM EST eCW1 ([facility]) Surgeries/Procedures Procedure Description Date Indications Data Source(s) Medication: Mirena 52 mg (Levonorgestrel -releasing intrauterine contraceptive system) 08/17/2020 12:00:00 AM EST eCW1 ([facility]) SUBSEQUENT CARE VISIT 02/24/2020 12:00:00 AM EDT eCW1 ([facility]) OB Visit 01/21/2020 12:00:00 AM EDT e CW1 ([facility]) US UTERUS LIMITED 1/> FETUSES 12/01/2019 12:0 0:00 AM EST eCW1 ([facility]) DESTRUCTION BENIGN LESIONS UP TO 14 11/21/2019 12:00:0 0 AM EST [facility] ([facility] Results ID Date Data Source [id number] 11/12/2020 09:30:00 AM EST [facility] Name Value Range Interpretation Code Description Data Elvia rce(s) Supporting Document(s) SARS coronavirus 2 RNA Not Detected [facility] [place] This lab was ordered by [facility] and reported by [facility]. ID Date Data Source Glucose Challenge Test 1 Hour 02/26/2020 12:00:00 AM EDT eCW 1 ([facility]) Name Value Range Interpretation Code Description Data Elvia rce(s) Supporting Document(s) 104 LESS THAN 140 GLUCOSE CHALLENGE TEST 1 HOUR eCW1 ([facility]) ID Date Data Source CBC - Complete Blood Count 02/26/2020 12:00:00 AM EDT eCW1 ( [facility]) Name Value Range Interpretation Code Description Data Elvia rce(s) Supporting Document(s) 11.6 12.0-15.5 HEMOGLOBIN eCW1 ([facility]) 3.81 4.00-5.40 RED BLOOD COUNT eCW1 ([facility]) 91.1 80.0-96.0 MEAN CORPUSCULAR VOLUME e CW1 ([facility]) 10.9 4.0-10.0 WHITE BLOOD COUNT eCW1 ([facility]) 34.7 36.0-47.0 HEMATOCRIT eCW1 ([facility]) 33.4 32.0-36.5 MEAN CORPUSCULAR HGB CONC eCW1 ([facility]) 174 150-450 PLATELET COUNT, AUTOMATED eCW1 ([facility]) 13.3 11.5-14.5 RED CELL DISTRIBUTION WID TH eCW1 ([facility]) 30.4 27.0-33.0 MEAN CORPUSCULAR HEMOGLOB IN eCW1 ([facility]) ID Date Data Source Type and Screen (D Rh Antibody Screen) 02/26/2020 12:00:00 A M EDT eCW1 ([facility]) Name Value Range Interpretation Code Description Data Elvia rce(s) Supporting Document(s) NEGATIVE AB SCREEN (INDIRECT COOMB S)VIS eCW1 ([facility]) O POSITIVE BLOOD TYPE eCW1 ([facility]) ID Date Data Source HBSAG 11/08/2019 12:00:00 AM EST eCW1 ([facility]) Name Value Range Interpretation Code Description Data Elvia rce(s) Supporting Document(s) NEGATIVE NEGATIVE HBsAg eCW1 ([facility]) ID Date Data Source HEPATITIS C ANTIBODY INDEX 11/08/2019 12:00:00 AM EST eCW1 ( [facility]) Name Value Range Interpretation Code Description Data Elvia rce(s) Supporting Document(s) < 0.0 <0.8 HEPATITIS C VIRUS TATY IND EX eCW1 ([facility]) ID Date Data Source RUBELLA IMMUNE STATUS IgG 11/08/2019 12:00:00 AM EST eCW1 ([facility]) Name Value Range Interpretation Code Description Data Elvia rce(s) Supporting Document(s) IMMUNE IMMUNE RUBELLA IgG QUALITATIVE eCW1 ( [facility]) ID Date Data Source SYPHILIS ANTIBODY (RPR SCREEN) 11/08/2019 12:00:00 AM EST eC W1 ([facility]) Name Value Range Interpretation Code Description Data Elvia rce(s) Supporting Document(s) NONREACTIVE NONREACTIVE SYPHILIS eCW1 ([facility]) ID Date Data Source CHLAMYDIA & GC DNA AMPLIFICAT 11/08/2019 12:00:00 AM EST eCW 1 ([facility]) Name Value Range Interpretation Code Description Data Elvia rce(s) Supporting Document(s) Chlamydia trachomatis rRNA [Presence] in Unspecified specimen by Probe and target amplification method NEGATIVE NEGATIVE CHLAMYDIA DNA AMPLIFICATION eCW1 ([facility]) ID Date Data Source Type and Screen Prenatal1 11/08/2019 12:00:00 AM EST eCW1 ([facility]) Name Value Range Interpretation Code Description Data Elvia rce(s) Supporting Document(s) NEGATIVE AB SCREEN PNP1 GEL (VIS) eCW1 ([facility]) Procedure Social History Code Duration Value Status Description Data Source(s ) Smoking 11/11/2020 12:00:00 AM EST Former Smoker completed Former Smoker eCW1 ([facility]) Smoking 11/01/2020 12:00:00 AM EST Former Smoker completed Former Smoker eCW1 ([facility]) Smoking 09/07/2020 12:00:00 AM EST Former Smoker completed Former Smoker eCW1 ([facility]) Smoking 09/07/2020 12:00:00 AM EST Former Smoker completed Former Smoker eCW1 ([facility]) Smoking 09/07/2020 12:00:00 AM EST Former Smoker completed Former Smoker eCW1 ([facility]) Smoking 08/11/2020 12:00:00 AM EST Former Smoker completed Former Smoker eCW1 ([facility]) Smoking 08/11/2020 12:00:00 AM EST Former Smoker completed Former Smoker [email or web address] ([facility]) Smoking 07/23/2020 12:00:00 AM EDT Former Smoker completed Former Smoker [email or web address] ([facility]) Smoking 07/23/2020 12:00:00 AM EDT Former Smoker completed Former Smoker [email or web address] ([facility]) Smoking 04/28/2020 12:00:00 AM EDT Former Smoker completed Former Smoker [email or web address] ([facility]) Smoking 03/15/2020 12:00:00 AM EDT Former Smoker completed Former Smoker [email or web address] ([facility]) Vital Signs ID Date Data Source UNK Name Value Range Interpretation Code Description Data Source(s) Diastolic blood pressure 70 mm[Hg] 70 mm[Hg] eCW1 ([facility]) Systolic blood pressure 124 mm[Hg] 124 mm[Hg] e CW1 ([facility]) Body temperature 97.5 [degF] 97.5 [degF] eCW1 ( [facility]) Respiratory rate 18 /min 18 /min eCW1 ([facility]) Heart rate 84 /min 84 /min eCW1 ([facility]) Body mass index (BMI) [Ratio] 28.57 kg/m2 28.57 kg/m2 eCW1 ([facility]) Body height 66 [in_i] 66 [in_i] eCW1 ([facility]) Body weight 177 [lb_av] 177 [lb_av] eCW1 (Formerly [facility]) Body mass index (BMI) [Ratio] 28.4 kg/m2 28.4 k g/m2 W1 ([facility]) Body height 66 [in_i] 66 [in_i] eCW1 ([facility]) Body weight 79.83 kg 79.83 kg eCW1 ([facility]) Body weight 176 [lb_av] 176 [lb_av] eCW1 ([facility]) Diastolic blood pressure 74 mm[Hg] 74 mm[Hg] eCW1 ([facility]) Systolic blood pressure 118 mm[Hg] 118 mm[Hg] e CW1 ([facility]) Body weight 179 [lb_av] 179 [lb_av] eCW1 ([facility]ly [facility]) Diastolic blood pressure 60 mm[Hg] 60 mm[Hg] eCW1 ([facility]) Systolic blood pressure 98 mm[Hg] 98 mm[Hg] e CW1 ([facility]) Body mass index (BMI) [Ratio] 28.89 kg/m2 28.89 kg/m2 W1 ([facility]) Body height 66 [in_i] 66 [in_i] eCW1 ([facility]) Diastolic blood pressure 68 mm[Hg] 68 mm[Hg] eCW1 ([facility]) Systolic blood pressure 128 mm[Hg] 128 mm[Hg] e CW1 ([facility]) Body mass index (BMI) [Ratio] 28.89 kg/m2 28.89 kg/m2 eCW1 ([facility]) Body height 66 [in_i] 66 [in_i] eCW1 ([facility]) Body weight 179 [lb_av] 179 [lb_av] eCW1 ([facility]) Diastolic blood pressure 70 mm[Hg] 70 mm[Hg] eCW1 ([facility]) Systolic blood pressure 116 mm[Hg] 116 mm[Hg] e CW1 ([facility]) Body mass index (BMI) [Ratio] 33.378 kg/m2 33.3 78 kg/m2 W1 ([facility]) Body height 66 [in_i] 66 [in_i] eCW1 ([facility]) Body weight 206.8 [lb_av] 206.8 [lb_av] eCW1 ([facility]) Diastolic blood pressure 72 mm[Hg] 72 mm[Hg] eCW1 ([facility]) Systolic blood pressure 124 mm[Hg] 124 mm[Hg] e CW1 ([facility]) Body mass index (BMI) [Ratio] 32.765 kg/m2 32.7 65 kg/m2 eCW1 ([facility]) Body height 66 [in_i] 66 [in_i] eCW1 ([facility]) Body weight 203 [lb_av] 203 [lb_av] eCW1 ([facility]) Diastolic blood pressure 80 mm[Hg] 80 mm[Hg] eCW1 ([facility]) Systolic blood pressure 122 mm[Hg] 122 mm[Hg] e CW1 ([facility]) Body mass index (BMI) [Ratio] 31.28 kg/m2 31.28 kg/m2 eCW1 ([facility]) Body height 66 [in_i] 66 [in_i] eCW1 ([facility]) Body weight 193.8 [lb_av] 193.8 [lb_av] eCW1 ([facility]) Diastolic blood pressure 72 mm[Hg] 72 mm[Hg] eCW1 ([facility]) Systolic blood pressure 122 mm[Hg] 122 mm[Hg] e CW1 ([facility]) Body mass index (BMI) [Ratio] 31.15 kg/m2 31.15 kg/m2 eCW1 ([facility]) Body height 66 [in_i] 66 [in_i] eCW1 ([facility]) Body weight 193 [lb_av] 193 [lb_av] eCW1 ([facility]) Diastolic blood pressure 70 mm[Hg] 70 mm[Hg] eCW1 ([facility]) Systolic blood pressure 108 mm[Hg] 108 mm[Hg] e CW1 ([facility]) Body mass index (BMI) [Ratio] 30.667 kg/m2 30.6 67 kg/m2 eCW1 ([facility]) Body height 66 [in_us] 66 [in_us] eCW1 ([facility]) Body weight Measured 190 [lb_av] 190 [lb_av] eC W1 ([facility]) Diastolic blood pressure 72 mm[Hg] 72 mm[Hg] eCW1 ([facility]) Systolic blood pressure 124 mm[Hg] 124 mm[Hg] e CW1 ([facility]) Body mass index (BMI) [Ratio] 29.698 kg/m2 29.6 98 kg/m2 eCW1 ([facility]) Body height 66 [in_us] 66 [in_us] eCW1 ([facility]) Body weight Measured 184 [lb_av] 184 [lb_av] eC W1 ([facility]) Diastolic blood pressure 62 mm[Hg] 62 mm[Hg] eCW1 ([facility]) Systolic blood pressure 130 mm[Hg] 130 mm[Hg] e CW1 ([facility]) Body mass index (BMI) [Ratio] 28.117 kg/m2 28.1 17 kg/m2 eCW1 ([facility]) Body height 66 [in_us] 66 [in_us] eCW1 ([facility]) Body weight Measured 174.2 [lb_av] 174.2 [lb_av ] eCW1 ([facility]) Diastolic blood pressure 80 mm[Hg] 80 mm[Hg] eCW1 ([facility]) Systolic blood pressure 130 mm[Hg] 130 mm[Hg] e CW1 ([facility]) Body mass index (BMI) [Ratio] 27.794 kg/m2 27.7 94 kg/m2 eCW1 ([facility]) Body height 66 [in_us] 66 [in_us] eCW1 ([facility]) Body weight Measured 172.2 [lb_av] 172.2 [lb_av ] eCW1 ([facility]) Body weight Measured 170 [lb_av] 170 [lb_av] eC W1 ([facility]) Diastolic blood pressure 80 mm[Hg] 80 mm[Hg] eCW1 ([facility]) Systolic blood pressure 132 mm[Hg] 132 mm[Hg] e CW1 ([facility]) Body mass index (BMI) [Ratio] 27.86 kg/m2 27.86 kg/m2 eCW1 ([facility]) Body height 65.5 [in_us] 65.5 [in_us] eCW1 ([facility]) Patient Treatment Plan of Care Planned Activity Planned Date Details Description Data Source (s) Sertraline 50 MG Oral Tablet 09/07/2020 12:00:00 AM EST eCW1 ([facility]) Sertraline 50 MG Oral Tablet 09/07/2020 12:00:00 AM EST eCW1 ([facility]) Sertraline 50 MG Oral Tablet 09/07/2020 12:00:00 AM EST eCW1 ([facility]) Sertraline 50 MG Oral Tablet 09/07/2020 12:00:00 AM EST eCW1 ([facility])
--- OUTSIDE RECORDS SUMMARY | 2020-11-17 16:13 | CCD ---
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 Role Phone Lokesh Orozco Unavailable PROBLEMS Type Condition ICD9-CM Code [id number] Code Onset Dates Condition S tatus SNOMED Code Notes Problem Other depression F32.89 Active 623874686 Problem Acne vulgaris L70.0 Active 72904962 Problem Former smoker Z87.891 Active 1599105 Problem Mild dysplasia of cervix ([place]) N87.0 Active 175555206 Problem Moderate cervical dysplasia N87.1 Active 2859 72095 Problem Insomnia, unspecified type G47.00 Active 25915 2000 Problem Supervision of other normal Z34.80 Ac tive 866306190 Problem Personal history of cervical dysplasia Z87.410 A ctive 723684012 Problem Secondary amenorrhea N91.1 Active [id number] ALLERGIES No Known Allergies ENCOUNTERS from 1985 to 2020-11-05 Encounter Location Date Provider Diagnosis [facility] [address] [facility] [address] [place] [address] Oct, Lokesh Orozco Moderate cervical dy splasia N87.1 IMMUNIZATIONS Vaccine Route Administration Date Status Influenza (18 yrs & older) Flublok IM Intramuscular Aug 01, 2019 Administered TDAP 0.5mL (Boostrix) IM Intramuscular March 30, 2020 Administe red Influenza (6mo & up) Fluzone IM Intramuscular Aug 09, 2018 Ad ministered SOCIAL HISTORY Tobacco Use: Social History Observation Description Date Details (start date - stop date) Former Smoker Sex Assigned At : Social History Observation Description Sex Assigned At Unknown Audit Question Answer Notes Total Score: 1 Interpretation: Alcohol Education Drug and Alcohol Question Answer Notes Total Score: 0 Interpretation: No problems reported Alcohol Screening: Question Answer Notes Did you have a drink containing alcohol in the past year? Ye s Points 2 Interpretation Negative How often did you have six or more drinks on one occas ion in the past year? Never (0 points) How many drinks did you have on a typica l day when you were drinking in the past year? 3 or 4 (1 point) How often did you have a drink containing alcohol in t he past year? Monthly or less (1 point) Tobacco Use: Question Answer Notes Are you a: former smoker Smoking Cessation Information Given 08/01/2019 How long has it been since you last smoked? < 1 month REASON FOR REFERRAL No Information VITAL SIGNS Weight 176 lbs Oct, Weight-kg 79.83 kg Oct, Height 66 in Oct, BMI 28.4 kg/m2 Oct, Blood pressure systolic 118 mm Hg Oct, Blood pressure diastolic 74 mm Hg Oct, MEDICATIONS Medication SIG (Take, Route, Frequency, Duration) Notes Start Da te End Date Status _ 1 tablet Orally Once a day Active Sertraline HCl 50 MG 1 tablet Orally Once a day for 30 day(s) Sep, Active PROCEDURES No Information RESULTS No Results REASON FOR VISIT PRE OP SURG 11/17/20 MEDICAL (GENERAL) HISTORY Type Description Date Medical History depression Medical History hx of heroin addiction- clean since 07/09 015 Surgical History Colposcopy x5 Surgical History D&C Goals Section No Information Health Concerns No Information MEDICAL EQUIPMENT No Information MENTAL STATUS No Information FUNCTIONAL STATUS No Information ASSESSMENTS Encounter Date Diagnosis Assessment Notes Treatment Notes Treatm ent Clinical Notes Oct, Moderate cervical dysplasia (ICD-10 - N87.1) The risks, benefits, alternatives, and indications of the LEEP procedure were reviewed. Possible outcomes of no further dysplasia, positive / negative margins, concomitant cervical carcinoma, and recurrence of dysplasia / carcinoma in the future were reviewed. Risks of future (i.e cervical insufficiency) reviewed. Recommended that she not conceive for 12 months from time of her LEEP. PLAN OF TREATMENT Treatment Notes Assessment Notes Clinical Notes Moderate cervical dysplasia The risks, b enefits, alternatives, and indications of the LEEP procedure were reviewed. Possible outcomes of no further dysplasia, positive / negative margins, concomitant cervical carcinoma, and recurrence of dysplasia / carcinoma in the future were reviewed. Risks of future (i.e cervical insufficiency) reviewed. Recommended that she not conceive for 12 months from time of her LEEP. Next Appt Details 11/17/20 Reason: Provider Name:Beatriz Ortega, 2020-11-10 04:0 0:00 PM, [address] [place] [address], [phone], Provider Name:Lokesh Orozco, 03:30:00 PM, [address] [place] [address], [phone], Provider Name:Lokesh Orozco, 10:00:00 AM, [address] [place] [address], [phone], Insurance Providers Payer Name Payer Address Payer Phone Insured Name Patient Relati onship to Insured Coverage Start Date Coverage End Date [facility] [employer] [facility] [address] [facility] [phone] [employer] BILL
--- OUTSIDE RECORDS SUMMARY | 2020-11-17 16:13 | CCD ---
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 Role Phone Pam Lokesh Unavailable PROBLEMS Type Condition ICD9-CM Code [id number] Code Onset Dates Condition S tatus SNOMED Code Notes Problem Other depression F32.89 Active 490127300 Problem Personal history of cervical dysplasia Z87.410 A ctive 344931189 Problem Secondary amenorrhea N91.1 Active 959524786 Problem Acne vulgaris L70.0 Active 27776374 Problem Former smoker Z87.891 Active 7675418 Problem Insomnia, unspecified type G47.00 Active 79666 2000 Problem Supervision of other normal Z34.80 Ac tive 655229525 ALLERGIES No Known Allergies ENCOUNTERS from 1985 to 2020-08-30 Encounter Location Date Provider Diagnosis [facility] [address] [place] [phone] Aug, Lokesh Orozco Encounter for insert ion of mirena IUD Z30.430 IMMUNIZATIONS Vaccine Route Administration Date Status Influenza [...] FOR REFERRAL No Information VITAL SIGNS Weight 179 lbs Aug, Height 66 in Aug, BMI 28.89 kg/m2 Aug, Blood pressure systolic 128 mm Hg Aug, Blood pressure diastolic 68 mm Hg Aug, MEDICATIONS Medication SIG (Take, Route, Frequency, Duration) Notes Start Da te End Date Status _ 1 tablet Orally Once a day Active BuPROPion HCl ER (XL) 300 MG 1 tablet in the morning O rally Once a day for 30 day(s) Sep, Not-Taking Zoloft 25 MG 1 tablet Orally Once a day Active PROCEDURES Procedure Date Ordered Result Body Site Medication: Mirena 52 mg (Levonorgestrel -releasing intrauterine contraceptive system) 2020-08-17 N/A RESULTS No Results REASON FOR VISIT MIRENA INSERTION MEDICAL (GENERAL) HISTORY Type Description Date Medical History depression Medical History hx of heroin addiction- clean since 07/09 015 Surgical History Colposcopy x5 Surgical History D&C Goals Section No Information Health Concerns No Information MEDICAL EQUIPMENT No Information MENTAL STATUS No Information FUNCTIONAL STATUS No Information ASSESSMENTS Encounter Date Diagnosis Assessment Notes Treatment Notes Treatm ent Clinical Notes Aug, Encounter for insertion of mirena IUD (ICD-10 - Z30.430) Reviewed routine post-IUD precautions (bleeding, infection, fever, pain). Patient counseled on the expected nuissance bleeding/cramping that may take place over the next 2-3 months. Recommended back-up method for 1-2 weeks. Return to office in 2-4 weeks for IUD string check. Patient will have colpo / Pap at same time. PLAN OF TREATMENT Treatment Notes Assessment Notes Clinical Notes Encounter for insertion of mirena IUD Re viewed routine post-IUD precautions (bleeding, infection, fever, pain). Patient counseled on the expected nuissance bleeding/cramping that may take place over the next 2-3 months. Recommended víctor k-up method for 1-2 weeks. Return to office in 2-4 weeks for IUD string check. Patient will have colpo / Pap at same time. Next Appt Details 2 Weeks Reason: Provider Name:Lokesh Orozco, 02:00:00 PM, [address] [place], [phone], Provider Name:Beatriz Ortega, 2020-09-20 02:0 0:00 PM, [address] [place], [phone], Insurance Providers Payer Name Payer Address Payer Phone Insured Name Patient Relati onship to Insured Coverage Start Date Coverage End Date [employer] [address] [facility] [phone] [employer] BILL
[2020-11-17 17:06] VITALS: BP 119/67
== END 2020-11-17 17:06 | disposition home or self-care (01) ==
LOC: M SDC 13:45
PROVIDERS: ATTEND Obstetrics & Gynecology
DX: N87.1 Moderate cervical dysplasia (principal); D64.9 Anemia, unspecified; Z79.899 Other long term (current) drug therapy; F32.9 Major depressive disorder, single episode, unspecified; Z87.891 Personal history of nicotine dependence
CPT/HCPCS: 36415; 57522; 84703; 85027; 86850; 86900; 86901; 88307; J2250; J3010

== ENCOUNTER → 2022-01-24 | Outpatient (CLI) | payer OTHER ==
[~2022-01-24] MED LIST changes: -LIDOCAINE 1% MDV 20ML VIAL SQ PRN; -LR 1,000 ML IV ONE
[2022-01-24 13:54] LABS: BASO % 0.5 % (0.0-1.0); EOS # 0.2 10^3/uL (0.0-0.5); EOS % 2.5 % (0.0-3.0); HEMOGLOBIN 13.3 g/dl (12.0-15.5); LYMPH # 2.7 10^3/uL (1.5-5.0); LYMPH % 34.8 % (24.0-44.0); MEAN CORPUSCULAR HGB CONC 32.4 g/dl (32.0-36.5); MEAN CORPUSCULAR VOLUME 92.3 fl (80.0-96.0); MONO # 0.6 10^3/uL (0.0-0.8); MONO % 8.1 % (2.0-8.0); NEUTROPHILS # 4.1 10^3/uL (1.5-8.5); NEUTROPHILS % 53.7 % (36.0-66.0); PLATELET COUNT, AUTOMATED 226 10^3/uL (150-450); RED BLOOD COUNT 4.44 10^6/uL (4.00-5.40); WHITE BLOOD COUNT 7.7 10^3/uL (4.0-10.0)
[2022-01-24 14:10] LABS: ALBUMIN 4.4 GM/DL (3.2-5.2); ALT/SGPT 26 U/L (12-78); BILIRUBIN,TOTAL 0.4 MG/DL (0.2-1.0); BLOOD UREA NITROGEN 11 MG/DL (7-18); CALCIUM LEVEL 9.6 MG/DL (8.5-10.1); CARBON DIOXIDE LEVEL 27 MEQ/L (21-32); CHLORIDE LEVEL 109 MEQ/L (98-107); CHOLESTEROL LEVEL 172 MG/DL (<200); CHOLESTEROL RISK RATIO 2.492 (<5); CREATININE FOR GFR 0.72 MG/DL (0.55-1.30); GLOMERULAR FILTRATION RATE > 60.0 (>60); GLUCOSE, FASTING 87 MG/DL (70-100); HDL CHOLESTEROL 69 MG/DL (>40); LDL CHOLESTEROL 94 MG/DL (<100); NON-HDL-C 103 MG/DL; POTASSIUM SERUM 4.4 MEQ/L (3.5-5.1); SODIUM LEVEL 141 MEQ/L (136-145); TOTAL 25(OH) VITAMIN D 24.9 NG/ML (30.0-100.0); TOTAL PROTEIN 7.7 GM/DL (6.4-8.2); TRIGLYCERIDES LEVEL 44 MG/DL (<150)
== END ==
LOC: M PLALAB 09:41
PROVIDERS: ATTEND Physician Assistant
DX: Z13.29 Encounter for screening for other suspected endocrine disorder (principal); E55.9 Vitamin D deficiency, unspecified; Z13.220 Encounter for screening for lipoid disorders

== ENCOUNTER → 2022-07-05 | Outpatient (REF) | payer OTHER | LOC: M SFHCWAGY 13:25 | PROVIDERS: ATTEND Obstetrics & Gynecology | DX: Z12.4 Encounter for screening for malignant neoplasm of cervix (principal) ==

== ENCOUNTER → 2022-11-02 | Outpatient (CLI) | payer OTHER ==
[2022-11-02 18:24] LABS: HCG, SERUM QUALITATIVE POSITIVE (NEGATIVE)
[2022-11-03 14:34] LABS: HCG, SERUM QUANTITATIVE 36686.8 MIU/ML (<4.2)
== END ==
LOC: M PLALAB 15:39
PROVIDERS: ATTEND Physician Assistant
DX: Z34.81 Encounter for supervision of other normal pregnancy, first trimester (principal); Z3A.01 Less than 8 weeks gestation of pregnancy

== ENCOUNTER → 2022-11-14 | Outpatient (CLI) | payer OTHER ==
[2022-11-14 16:47] LABS: HEMATOCRIT 39.7 % (36.0-47.0); HEMOGLOBIN 13.2 g/dl (12.0-15.5); MEAN CORPUSCULAR HEMOGLOBIN 29.6 pg (27.0-33.0); MEAN CORPUSCULAR HGB CONC 33.2 g/dl (32.0-36.5); PLATELET COUNT, AUTOMATED 199 10^3/uL (150-450); RED BLOOD COUNT 4.46 10^6/uL (4.00-5.40); WHITE BLOOD COUNT 10.8 10^3/uL (4.0-10.0)
[2022-11-14 17:09] LABS: ALKALINE PHOSPHATASE 44 U/L (46-116); ALT/SGPT 17 U/L (7.0-40); AST/SGOT 20 U/L (<34); BILIRUBIN,TOTAL 0.5 MG/DL (0.3-1.2); BLOOD UREA NITROGEN 9 MG/DL (9-23); CALCIUM LEVEL 8.7 MG/DL (8.5-10.1); CARBON DIOXIDE LEVEL 28 MMOL/L (20-31); CHLORIDE LEVEL 101 MMOL/L (98-107); CREATININE FOR GFR 0.58 MG/DL (0.55-1.30); GLOMERULAR FILTRATION RATE > 60.0 (>60); GLUCOSE, FASTING 70 MG/DL (60-100); POTASSIUM SERUM 4.1 MMOL/L (3.5-5.1); SODIUM LEVEL 136 MMOL/L (136-145); TOTAL PROTEIN 7.4 G/DL (5.7-8.2)
[2022-11-14 17:11] LABS: CREATININE,RANDOM URINE 47.9 MG/DL
[2022-11-14 17:12] LABS: TOTAL PROTEIN,RANDOM URINE < 6.0 MG/DL (0.0-14.0)
[2022-11-14 19:03] LABS: GC DNA AMPLIFICATION NEGATIVE (NEGATIVE)
[2022-11-14 21:05] LABS: HIV 1&2 SCREEN CENTAUR NEGATIVE (NEGATIVE)
== END ==
LOC: M PLALAB 13:52
PROVIDERS: ATTEND Obstetrics & Gynecology
DX: Z34.91 Encounter for supervision of normal pregnancy, unspecified, first trimester (principal)

== ENCOUNTER → 2022-11-14 | Outpatient (REF) | payer OTHER | LOC: M PLALAB 13:45 | PROVIDERS: ATTEND Obstetrics & Gynecology | DX: Z34.91 Encounter for supervision of normal pregnancy, unspecified, first trimester (principal); Z3A.00 Weeks of gestation of pregnancy not specified; Z53.9 Procedure and treatment not carried out, unspecified reason ==

== ENCOUNTER → 2022-12-12 | Outpatient (CLI) | payer OTHER | LOC: M PLALAB 15:56 | PROVIDERS: ATTEND Obstetrics & Gynecology | DX: Z34.91 Encounter for supervision of normal pregnancy, unspecified, first trimester (principal) ==

== ENCOUNTER → 2023-02-01 | Outpatient (CLI) | payer OTHER | LOC: M WHC 08:19 | PROVIDERS: ATTEND Advanced Practice Midwife | DX: Z34.82 Encounter for supervision of other normal pregnancy, second trimester (principal); Z3A.21 21 weeks gestation of pregnancy ==

== ENCOUNTER → 2023-03-22 | Outpatient (CLI) | payer OTHER | LOC: M WHC 09:01 | PROVIDERS: ATTEND Advanced Practice Midwife | DX: Z34.92 Encounter for supervision of normal pregnancy, unspecified, second trimester (principal) ==

== ENCOUNTER → 2023-03-22 | Outpatient (CLI) | payer OTHER ==
[2023-03-22 13:38] LABS: HEMATOCRIT 35.3 % (36.0-47.0); HEMOGLOBIN 11.7 g/dl (12.0-15.5); MEAN CORPUSCULAR HEMOGLOBIN 30.7 pg (27.0-33.0); MEAN CORPUSCULAR HGB CONC 33.1 g/dl (32.0-36.5); MEAN CORPUSCULAR VOLUME 92.7 fl (80.0-96.0); PLATELET COUNT, AUTOMATED 190 10^3/uL (150-450); RED BLOOD COUNT 3.81 10^6/uL (4.00-5.40)
== END ==
LOC: M PLALAB 09:43
PROVIDERS: ATTEND Advanced Practice Midwife
DX: Z34.92 Encounter for supervision of normal pregnancy, unspecified, second trimester (principal)

== ENCOUNTER → 2023-04-19 | Outpatient (CLI) | payer OTHER | LOC: M RAD 14:47 | PROVIDERS: ATTEND Obstetrics & Gynecology | DX: O44.43 Low lying placenta NOS or without hemorrhage, third trimester (principal) ==

== ENCOUNTER → 2023-05-22 | Outpatient (REF) | payer OTHER | LOC: M PLALAB 15:21 | PROVIDERS: ATTEND Obstetrics & Gynecology | DX: Z34.80 Encounter for supervision of other normal pregnancy, unspecified trimester (principal) ==

== ENCOUNTER 2023-06-20 14:55 | Outpatient (CLI) | payer OTHER ==
[~2023-06-20] VITALS: Ht 167.6 cm; Wt 95.2 kg
[2023-06-20 15:23] VITALS: BP 133/78; O2SAT 97
[2023-06-20] MEDS ORDERED: ASPI81CH33 PO (15:36)
[2023-06-20 15:39] VITALS: BP 120/74
[2023-06-20] MEDS ORDERED: HOME MED LIST COMPLETE! XX SCH (15:45)
[2023-06-20 15:54] VITALS: BP 118/70
[2023-06-20 16:09] VITALS: BP 130/74
[2023-06-20 16:11] LABS: HEMATOCRIT 36.6 % (36.0-47.0); HEMOGLOBIN 12.3 g/dl (12.0-15.5); MEAN CORPUSCULAR HGB CONC 33.6 g/dl (32.0-36.5); MEAN CORPUSCULAR VOLUME 89.3 fl (80.0-96.0); PLATELET COUNT, AUTOMATED 194 10^3/uL (150-450); WHITE BLOOD COUNT 13.6 10^3/uL (4.0-10.0)
[2023-06-20 16:24] VITALS: BP 120/77
[2023-06-20 16:33] LABS: TOTAL PROTEIN,RANDOM URINE 13.9 MG/DL (0.0-14.0)
[2023-06-20 16:36] LABS: LDH LACTATE DEHYDROGENASE 193 U/L (120-246)
[2023-06-20 16:37] LABS: ALT/SGPT 21 U/L (7.0-40); AST/SGOT 17 U/L (<34); BILIRUBIN,TOTAL 0.3 MG/DL (0.3-1.2); CREATININE FOR GFR 0.53 MG/DL (0.55-1.30); GLOMERULAR FILTRATION RATE > 60.0 (>60)
[2023-06-20 16:37] LABS: CREATININE,RANDOM URINE 91.8 MG/DL
[2023-06-20 16:38] VITALS: BP 118/75
[2023-06-23 19:01] LABS: URIC ACID 3.8 MG/DL (3.1-7.8)
[2023-06-24] MEDS ORDERED: WELLTAB40 PO (12:32)
== END 2023-06-20 17:32 | disposition home or self-care (01) ==
LOC: M LDO 14:55
PROVIDERS: ATTEND Advanced Practice Midwife
DX: O13.3 Gestational [pregnancy-induced] hypertension without significant proteinuria, third trimester (principal); O09.523 Supervision of elderly multigravida, third trimester; O99.343 Other mental disorders complicating pregnancy, third trimester; F32.89 Other specified depressive episodes; Z3A.40 40 weeks gestation of pregnancy
CPT/HCPCS: 36415; 59025; 82247; 82565; 82570; 83615; 84156; 84450; 84460; 84550; 85027; 86780; 86850; 86900; 86901; G0463

== ENCOUNTER → 2024-12-16 | Outpatient (CLI) | payer OTHER ==
[~2024-12-16] MED LIST changes: +ASPI81CH33 PO
[2024-12-16 11:37] LABS: BASO % 0.6 % (0.0-1.0); EOS # 0.2 10^3/uL (0.0-0.5); EOS % 2.5 % (0.0-3.0); HEMATOCRIT 38.2 % (36.0-47.0); HEMOGLOBIN 12.6 g/dl (12.0-15.5); LYMPH % 27.8 % (24.0-44.0); MEAN CORPUSCULAR HEMOGLOBIN 29.4 pg (27.0-33.0); MEAN CORPUSCULAR VOLUME 89.3 fl (80.0-96.0); MONO # 0.4 10^3/uL (0.0-0.8); MONO % 5.7 % (2.0-8.0); NEUTROPHILS # 4.6 10^3/uL (1.5-8.5); NEUTROPHILS % 63.3 % (36.0-66.0); PLATELET COUNT, AUTOMATED 212 10^3/uL (150-450); RED BLOOD COUNT 4.28 10^6/uL (4.00-5.40); WHITE BLOOD COUNT 7.2 10^3/uL (4.0-10.0)
[2024-12-16 11:47] LABS: ERYTHROCYTE SEDIMENTATION RATE 20 mm/hr (0-20)
[2024-12-16 12:22] LABS: ALBUMIN 3.9 G/DL (3.2-5.2); ALKALINE PHOSPHATASE 52 U/L (35-104); ALT/SGPT 29 U/L (7.0-40); AST/SGOT 22 U/L (<34); BILIRUBIN,TOTAL 0.4 MG/DL (0.3-1.2); BLOOD UREA NITROGEN 13 MG/DL (9-23); C REACTIVE PROTEIN QUANTITATIV < 0.50 MG/DL (<1.0); CALCIUM LEVEL 9.3 MG/DL (8.5-10.1); CARBON DIOXIDE LEVEL 25 MMOL/L (20-31); CHLORIDE LEVEL 106 MMOL/L (98-107); CHOLESTEROL LEVEL 187 MG/DL (<200); CHOLESTEROL RISK RATIO 2.56 (<5); CREATININE FOR GFR 0.63 MG/DL (0.55-1.30); GLOMERULAR FILTRATION RATE > 60.0 (>60); GLUCOSE, FASTING 87 MG/DL (60-100); HDL CHOLESTEROL 72.9 MG/DL (>40); LDL CHOLESTEROL 99.7 MG/DL (<100); NON-HDL-C 114.1 MG/DL; POTASSIUM SERUM 4.1 MMOL/L (3.5-5.1); RHEUMATOID FACTOR QUANT < 3.5 IU/ML (<14); SODIUM LEVEL 140 MMOL/L (136-145); TOTAL PROTEIN 7.3 G/DL (5.7-8.2); TRIGLYCERIDES LEVEL 72 MG/DL (<150)
[2024-12-16 12:24] LABS: FOLLICLE STIMULATING HORMONE 38.6 mIU/ML; LUTEINIZING HORMONE 42.6 mIU/ML; THYROID STIMULATING HORMONE 2.116 uIU/ML (0.55-4.78); TOTAL 25(OH) VITAMIN D 34.9 NG/ML (20.0-100.0)
[2024-12-16 12:41] LABS: HEPATITIS B SURFACE ANTIGEN NEGATIVE (NEGATIVE)
[2024-12-16 12:54] LABS: HIV 1&2 SCREEN NEGATIVE (NEGATIVE)
[2024-12-16 13:03] LABS: HEPATITIS B CORE ANTIBODY IGM NEGATIVE (NEGATIVE); HEPATITIS C VIRUS ABY INDEX 0.03 INDEX (<0.8)
[2024-12-16 13:20] LABS: URIC ACID 3.4 MG/DL (3.1-7.8)
[2024-12-18 16:52] LABS: ANA SCREEN, IFA NEGATIVE (NEGATIVE)
[2024-12-21 05:42] LABS: HSV SOURCE Serum; HSV-1 DNA Not Detected (Not Detected); HSV-2 DNA Not Detected (Not Detected)
== END ==
LOC: M LAB 09:09
PROVIDERS: ATTEND Nurse Practitioner Family
DX: E55.9 Vitamin D deficiency, unspecified (principal); N95.1 Menopausal and female climacteric states; R53.82 Chronic fatigue, unspecified; Z13.1 Encounter for screening for diabetes mellitus; Z13.220 Encounter for screening for lipoid disorders; Z11.4 Encounter for screening for human immunodeficiency virus [HIV]; Z11.59 Encounter for screening for other viral diseases

== ENCOUNTER → 2024-12-17 | Outpatient (CLI) | payer OTHER ==
[2024-12-23 18:11] LABS: HLA-B27 Negative (Negative)
== END ==
LOC: M LAB 08:23
PROVIDERS: ATTEND Nurse Practitioner Family
DX: R53.82 Chronic fatigue, unspecified (principal); E55.9 Vitamin D deficiency, unspecified; N95.1 Menopausal and female climacteric states; Z11.9 Encounter for screening for infectious and parasitic diseases, unspecified